=== PATIENT | female | born 1950 | race Caucasian/White ===

== ENCOUNTER 2016-09-22 10:11 | Emergency (ER) | payer OTHER ==
[2016-09-22] MEDS ORDERED: Acetaminophen TAB* 325 MG PO ONE (11:45)
--- NOTE | 2016-09-22 12:09 | RAD ---
INDICATION: Head injury. COMPARISON: Comparison is made with a prior CT of the brain from April 22, 2010. TECHNIQUE: Contiguous axial sections of the brain were obtained from the skull base to the vertex without contrast. FINDINGS: The ventricles, cisterns and sulci are within normal limits. No significant focal abnormality or mass effect is seen. There is no evidence for hemorrhage. There is mild soft tissue swelling in the scalp anterior to the right frontal bone. No fracture is seen. There is a small air-fluid level within the left maxillary sinus. The visualized portion of the paranasal sinuses and mastoid air cells otherwise appear clear. IMPRESSION: 1. NO EVIDENCE FOR ACUTE INTRACRANIAL ABNORMALITY. 2. SMALL AIR-FLUID LEVEL WITHIN THE LEFT MAXILLARY SINUS.
[2016-09-22 13:09] VITALS: BP 151/92
--- NOTE | 2016-09-22 14:17 | ED ---
Head Injury - HPI Summary HPI Summary: Patient tripped while walking and fell, landing on her right knee, arm and hit her right side of her head on the cement. She felt and heard her head hit the ground. She denies LOC, vomiting, neck pain or amnesia, and was able to get up and continue with her day. She developed a headache a few hours later and noticed an abrasion on her forehead so she thought she should be evaluated. She uses 81mg of ASA daily. Denies vision changes or mental status change. - History Of Current Complaint Chief Complaint: EDHeadInjury Stated Complaint: FALL / HIT HEAD Time Seen by Provider: 09/22/16 10:53 Hx Obtained From: Patient Mechanism Of Injury: Fall From A Standing Position Onset/Duration: Started Hours Ago, Atraumatic, Still Present Onset of Pain: Hours Severity Currently: Moderate Severity Initially: Mild Pain Intensity: 2 Pain Scale Used: 0-10 Numeric Location of Head Injury: Frontal Location: Discrete At: - forehead Character: Dull, Aching Associated Signs And Symptoms: Bruising - minor abrasion to right forehead Anticoagulant Therapy: ASA - 81mg daily - Allergies/Home Medications Allergies/Adverse Reactions: Allergies Allergy/AdvReac Type Severity Reaction Status Date / Time Codeine Allergy Vomiting Verified 02/06/15 13:44 Erythromycin Allergy Unknown Verified 02/06/15 13:44 Reaction Details Penicillins [PCN] Allergy Hives Verified 02/06/15 13:44 Sulfa Drugs Allergy Hives Verified 02/06/15 13:44 PMH/Surg Hx/FS Hx/Imm Hx Previously Healthy: Yes - Cancer History Cancer Type, Location and Year: BASAL CELL CARCINOMA REMOVED - Surgical History Surgery Procedure, Year, and Place: HYSTERECTOMY. CATARACT Infectious Disease History: No Infectious Disease History: Denies: Traveled Outside the [place] in Last 30 Days - Family History Known Family History: Positive: None - Social History Occupation: Employed Part-time Lives: With Family Alcohol Use: None Substance Use Type: Reports: None Smoking Status (MU): Never Smoked Tobacco Review of Systems Negative: Photophobia, Blurred Vision, Diplopia Negative: Edema Positive: Bruising - abrasion to right forehead Positive: Headache. Negative: Weakness, Paresthesia, Numbness All Other Systems Reviewed And Are Negative: Yes Physical Exam Triage Information Reviewed: Yes Vital Signs On Initial Exam: Initial Vitals Temp Pulse Resp BP Pulse Ox 98.4 F 49 18 153/83 97 09/22/16 10:41 09/22/16 10:41 09/22/16 10:41 09/22/16 10:41 09/22/16 10:41 Vital Signs Reviewed: Yes Appearance: Positive: Well-Appearing, Well-Nourished, Pain Distress Skin: Positive: Warm, Skin Color Reflects Adequate Perfusion, Dry, Tender - abrasion to right forehead, without hematoma, Soft Head/Face: Positive: Normal Head/Face Inspection Eyes: Positive: EOMI, WAGNER, Conjunctiva Clear ENT: Positive: Hearing grossly normal, Pharynx normal, TMs normal Neck: Positive: Supple, Nontender Respiratory/Lung Sounds: Positive: Clear to Auscultation, Breath Sounds Present Cardiovascular: Positive: Bradycardia Musculoskeletal: Positive: Strength/ROM Intact - FROM right shoulder, elbow, wrist and hand. Negative: Edema Left, Edema Right Neurological: Positive: Sensory/Motor Intact, Alert, Oriented to Person Place, Time, CN Intact II-III, NV Bundle Intact Distally, Normal Gait Psychiatric: Positive: Affect/Mood Appropriate AVPU Assessment: Alert Diagnostics - Vital Signs Vital Signs Temp Pulse Resp BP Pulse Ox 09/22/16 13:08 50 16 151/92 09/22/16 10:41 98.4 F 49 18 153/83 97 - Laboratory Lab Statement: Any lab studies that have been ordered have been reviewed, and results considered in the medical decision making process. - CT No standard instances CT Interpretation: No Acute Changes CT Interpretation Completed By: Radiologist Head Injury Course/Dx - Diagnoses Differential Diagnosis/HQI/PQRI: Cerebral Contusion, Cervical Sprain, Contusion , Hematoma, Laceration, Skull Fracture Provider Diagnoses: HEAD INJURY Discharge - Discharge Plan Condition: Stable Disposition: HOME Patient Education Materials: Head Injury (ED) Forms: *Work Release Referrals: Clifford Huang MD [Primary Care Provider] - Additional Instructions: Please use Tylenol for pain over the next 24 hours. You can begin using Ibuprofen tomorrow. Follow-up with your PCP if your symptoms persist. Return to the emergency if your symptoms worsen.
== END 2016-09-22 13:08 | disposition home or self-care (01) ==
LOC: ED 10:11
DX: S09.90XA Unspecified injury of head, initial encounter (principal); Z85.9 Personal history of malignant neoplasm, unspecified; W18.09XA Striking against other object with subsequent fall, initial encounter; Y92.9 Unspecified place or not applicable; Z79.82 Long term (current) use of aspirin; Z88.5 Allergy status to narcotic agent; Z88.0 Allergy status to penicillin; Z88.2 Allergy status to sulfonamides
CPT/HCPCS: 70450; 99282; A9270-GY